=== PATIENT | male | born 1950 | race Caucasian/White ===

== ENCOUNTER 2016-09-19 21:15 | Emergency (ER) | payer MEDICARE ==
[~2016-09-19] VITALS: Ht 167.6 cm; Wt 95.0 kg
[2016-09-19 21:18] VITALS: BP 167/94; PULSE 83; RESP 20; TEMP 98.2; O2SAT 100
[2016-09-19] MEDS ORDERED: SODIUM CHLOR 0.9% 1000 ML INJ 1,000 ML IV SCH (22:06)
[2016-09-19 22:15] VITALS: RESP 26; O2SAT 99
[2016-09-19] MEDS ORDERED: MORPHINE SULFATE 4 MG/ML INJ IV PUSH ONE (22:15)
[2016-09-19] MEDS ORDERED: ONDANSETRON HCL 4 MG/2 ML VIAL IVP ONE (22:15)
--- NOTE | 2016-09-19 22:18 | PD ---
HPI Chief Complaint: Pain: Acute or Chronic Time Seen by Provider: 21:59 Travel History International Travel<30 days: No Contact w/Intl Traveler<30days: No Traveled to known affect area: No History of Present Illness HPI 66 years old male complains of right groin pain. Patient has history of right inguinal hernia since 2012. Patient states that he has not severe pain started this evening localized to the right groin area. Patient denies any pain radiation. Patient denies any nausea vomiting diarrhea. Patient denies any fever chills. Patient has history of peripheral vascular disease, paroxysmal atrial fibrillation and systolic CHF. Patient has history of CAD. Patient's on Plavix and Coumadin. Patient status post right inguinal and right leg surgery with grafting for unknown reason at this point. PFSH Social History Tobacco Use: No Allergies-Medications (Allergen,Severity, Reaction): Coded Allergies: Vancomycin (Verified Allergy, Unknown, 09/19/16) Reported Meds & Prescriptions Reported Meds & Active Scripts Active [place] (Hydrocodone-Acetaminophen) 5-325 mg Tab 1 Tab PO Q6H PRN Review of Systems General / Constitutional: No: Fever Eyes: No: Visual changes HENT: No: Headaches Cardiovascular: No: Chest Pain or Discomfort Respiratory: No: Shortness of Breath Gastrointestinal: Positive: Abdominal Pain Genitourinary: No: Dysuria Musculoskeletal: No: Pain Skin: No Rash Neurologic: No: Weakness Psychiatric: No: Depression Endocrine: No: Polydipsia Hematologic/Lymphatic: No: Easy Bruising Physical Exam Narrative GENERAL: Well-nourished, well-developed patient. SKIN: Focused skin assessment warm/dry. HEAD: Normocephalic. EYES: No scleral icterus. No injection or drainage. NECK: Supple, trachea midline. No JVD or lymphadenopathy. CARDIOVASCULAR: Regular rate and rhythm without murmurs, gallops, or rubs. RESPIRATORY: Breath sounds equal bilaterally. No accessory muscle use. GASTROINTESTINAL: Abdomen soft, non-tender, nondistended. MUSCULOSKELETAL: No cyanosis, or edema. BACK: Nontender without obvious deformity. No CVA tenderness. Patient has large right inguinal hernia, moderate to severe tenderness on palpation. Data Data Last Documented VS Vital Signs Date Time Temp Pulse Resp B/P Pulse Ox O2 Delivery O2 Flow Rate FiO2 09/19/16 22:15 26 99 Room Air 09/19/16 21:18 98.2 83 167/94 Orders Complete Blood Count With Diff (09/19/16 22:06) Comprehensive Metabolic Panel (09/19/16 22:06) Prothrombin Time / Inr (Pt) (09/19/16 22:06) Act Partial Throm Time (Ptt) (09/19/16 22:06) Iv Access Insert/Monitor (09/19/16 22:06) Ecg Monitoring (09/19/16 22:06) Oximetry (09/19/16 22:06) Morphine Inj (Morphine Inj) (09/19/16 22:15) Ondansetron Inj (Zofran Inj) (09/19/16 22:15) Sodium Chlor 0.9% 1000 Ml Inj (Ns 1000 M (09/19/16 22:06) Hydromorphone Pf Inj (Dilaudid Pf Inj) (09/19/16 22:30) Ct Abd/Pel W/O Iv Contrast (09/19/16 22:46) Labs Laboratory Tests Test 09/19/16 22:20 White Blood Count 9.5 TH/MM3 Red Blood Count 4.86 MIL/MM3 Hemoglobin 12.4 GM/DL Hematocrit 37.9 % Mean Corpuscular Volume 77.9 FL Mean Corpuscular Hemoglobin 25.6 PG Mean Corpuscular Hemoglobin 32.8 % Concent Red Cell Distribution Width 15.6 % Platelet Count 194 TH/MM3 Mean Platelet Volume 7.0 FL Neutrophils (%) (Auto) 81.4 % Lymphocytes (%) (Auto) 9.7 % Monocytes (%) (Auto) 8.0 % Eosinophils (%) (Auto) 0.4 % Basophils (%) (Auto) 0.5 % Neutrophils # (Auto) 7.8 TH/MM3 Lymphocytes # (Auto) 0.9 TH/MM3 Monocytes # (Auto) 0.8 TH/MM3 Eosinophils # (Auto) 0.0 TH/MM3 Basophils # (Auto) 0.0 TH/MM3 CBC Comment DIFF FINAL Differential Comment Prothrombin Time 24.6 SEC Prothromb Time International 2.2 RATIO Ratio Activated Partial 35.0 SEC Thromboplast Time Sodium Level 138 MEQ/L Potassium Level 4.9 MEQ/L Chloride Level 103 MEQ/L Carbon Dioxide Level 28.9 MEQ/L Anion Gap 6 MEQ/L Blood Urea Nitrogen 18 MG/DL Creatinine 1.19 MG/DL Estimat Glomerular Filtration 61 ML/MIN Rate Random Glucose 140 MG/DL Calcium Level 9.1 MG/DL Total Bilirubin 0.4 MG/DL Aspartate Amino Transf 15 U/L (AST/SGOT) Alanine Aminotransferase 28 U/L (ALT/SGPT) Alkaline Phosphatase 109 U/L Total Protein 8.0 GM/DL Albumin 3.8 GM/DL MDM Medical Decision Making Medical Screen Exam Complete: Yes Emergency Medical Condition: Yes Interpretation(s) Last Impressions Abdomen/Pelvis CT 09/19/16 2246 Signed Impressions: Service Date/Time: Monday, September 19, 2016 22:57 - CONCLUSION: 1. Moderate to large fat containing right inguinal hernia extending into the right scrotum. 2. There is a 2.9 cm lesion within the right lobe of the liver that does not meet criteria for a cyst. Suggest correlating with any prior imaging studies that can offer additional characterization. If none are available, suggest further characterization with outpatient elective basis with liver protocol CT or MRI. 3. 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 Angel Sebastian MD CBC within normal limit. MCV 77.9. CMP within normal limit. INR 2.2. Differential Diagnosis Differential diagnosis including incarcerated right inguinal hernia, strangulated right inguinal hernia Narrative Course 66 years old male with severe pain right inguinal hernia. Morphine 4 mg IV given. Zofran 4 mg IV given. Dilaudid 1 mg IV given. Spoke with Dr. Torres, Gen. surgeon on-call. Advised for patient to follow-up with him in the office. Diagnosis Primary Impression: Reducible right inguinal hernia Patient Instructions: General Instructions Additional Instructions: Hydrocodone as needed for pain. Follow-up with Gen. surgeon. Return immediately if intractable pain, fever, persistent vomiting. Take stool softener with pain medication. Med/Other Pt SpecificInfo: Prescription(s) given Scripts Hydrocodone-Acetaminophen ([place])5-325 mg Tab1 Tab PO Q6H PRN (PAIN) #30 TAB Prov:Johnnie Owusu MD 09/19/16 Disposition: 01 DISCHARGE HOME Condition: Stable Johnnie Owusu MD Sep 19, 2016 22:18
[2016-09-19] MEDS ORDERED: HYDROmorphone HCL PF 1 MG/ML VIAL IV PUSH ONE (22:30)
[2016-09-19 22:57] LABS: AUTOMATED NEUTROPHIL # 7.8 TH/MM3 (1.8-7.7); BASOPHIL % 0.5 % (0.0-2.0); EOSINOPHIL % 0.4 % (0.0-4.0); HEMATOCRIT 37.9 % (39.0-51.0); HEMO FLAGS DIFF FINAL; LYMPH % 9.7 % (9.0-44.0); LYMPHOCYTE # 0.9 TH/MM3 (1.0-4.8); MEAN CELL VOLUME 77.9 FL (80.0-100.0); MEAN CORPUSCULAR HEMOGLOBIN 25.6 PG (27.0-34.0); MEAN CORPUSCULAR HGB CONC 32.8 % (32.0-36.0); NEUT % 81.4 % (16.0-70.0); PLATELET COUNT 194 TH/MM3 (150-450); RED BLOOD COUNT 4.86 MIL/MM3 (4.50-5.90); RED CELL DISTRIBUTION WIDTH 15.6 % (11.6-17.2); WHITE BLOOD COUNT 9.5 TH/MM3 (4.0-11.0)
[2016-09-19 23:12] LABS: ALT (GPT) 28 U/L (12-78); ANION GAP 6 MEQ/L (5-15); AST (GOT) 15 U/L (15-37); BICARBONATE 28.9 MEQ/L (21.0-32.0); BLOOD UREA NITROGEN 18 MG/DL (7-18); CHLORIDE 103 MEQ/L (98-107); GLOMERULAR FILTRATION RATE 61 ML/MIN (>89); POTASSIUM 4.9 MEQ/L (3.5-5.1); SODIUM (NA) 138 MEQ/L (136-145)
[2016-09-19 23:14] LABS: ALKALINE PHOSPHATASE 109 U/L (45-117); INTERNATIONAL NORMALIZED RATIO 2.2 RATIO; PROTHROMBIN TIME - PATIENT 24.6 SEC (9.8-11.6); TOTAL BILIRUBIN ADULT 0.4 MG/DL (0.2-1.0)
--- NOTE | 2016-09-19 23:15 | RADRPT ---
EXAM DATE/TIME: 09/19/2016 22:57 [facility] COMPARISON: No previous studies available for comparison. INDICATIONS : Right groin pain. ORAL CONTRAST: No oral contrast ingested. RADIATION DOSE: 15.73 CTDIvol (mGy) MEDICAL HISTORY : None SURGICAL HISTORY : None. ENCOUNTER: Initial ACUITY: 1 day PAIN SCALE: 10/10 LOCATION: Right pelvis TECHNIQUE: Volumetric scanning of the abdomen and pelvis was performed. Using automated exposure control and ad justment of the mA and/or kV according to patient size, radiation dose was kept as low as reasonably achievable to obtain optimal diagnostic quality images. DICOM format image data is available electro nically for review and comparison. FINDINGS: There is respiratory motion artifact. LOWER LUNGS: The visualized lower lungs are clear. LIVER: Homogeneous density with a low-density lesion in the right anterior liver measuring 2.9 cm. Hounsfiel d measurements are 35. There is a single calcified stone in the gallbladder. There is no dilation of the biliary tree. SPLEEN: Normal size without lesion. PANCREAS: Within normal limits. KIDNEYS: Normal in size and shape. There is no mass, stone, or hydronephrosis. ADRENAL GLANDS: There is a left adrenal gland mass measuring 17 mm with Hounsfield measurements of 9. Right adrenal g land is normal. VASCULAR: There is severe atherosclerotic disease with focal saccular-type aneurysm of the infrarenal aorta kris suring up to 2.7 cm. BOWEL/MESENTERY: The stomach, small bowel, and colon demonstrate no acute abnormality. There is no free intraperitone al air or fluid. The appendix is normal. ABDOMINAL WALL: Within normal limits. RETROPERITONEUM: There is no lymphadenopathy. BLADDER: No wall thickening or mass. REPRODUCTIVE: Within normal limits. INGUINAL: There is no lymphadenopathy. There is a moderate to large fat containing right inguinal hernia extend ing into the right scrotum. MUSCULOSKELETAL: Degenerative changes throughout the lumbar spine and hip joints. CONCLUSION: 1. Moderate to large fat containing right inguinal hernia extending into the right scrotum. 2. There is a 2.9 cm lesion within the right lobe of the liver that does not meet criteria for a cyst . Suggest correlating with any prior imaging studies that can offer additional characterization. If n one are available, suggest further characterization with outpatient elective basis with liver protoco l CT or MRI. 3. 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 Angel Sebastian MD on September 19, 2016 at 23:05 Board Certified Radiologist. This report was verified electronically.
[2016-09-19] MEDS ORDERED: NORC5TAB PO (23:49)
== END 2016-09-20 00:12 | disposition home or self-care (01) ==
LOC: NEPD 21:15
DX: K40.90 Unilateral inguinal hernia, without obstruction or gangrene, not specified as recurrent (principal); K80.20 Calculus of gallbladder without cholecystitis without obstruction; D35.02 Benign neoplasm of left adrenal gland; I73.9 Peripheral vascular disease, unspecified; I48.0 Paroxysmal atrial fibrillation; I50.9 Heart failure, unspecified; I25.10 Atherosclerotic heart disease of native coronary artery without angina pectoris; Z79.01 Long term (current) use of anticoagulants; Z79.02 Long term (current) use of antithrombotics/antiplatelets
CPT/HCPCS: 74176; 80053; 85025; 85610; 85730; 96361; 96374; 96375; 99285; J1170; J2270; J2405; J7030